=== PATIENT | female | born 1945 | race American Indian/Alaskan Native ===

== ENCOUNTER 2016-09-18 11:24 | Outpatient (CLI) | payer MEDICARE ==
--- NOTE | 2016-09-19 08:16 | Vascular Lab Report ---
LEFT LOWER EXTREMITY ARTERIAL DUPLEX: REASON FOR EXAM: Peripheral arterial disease. COMMENTS ON THE LEFT: Triphasic waveforms are seen proximally. Monophasic waveforms are seen distally. Significant decrease in velocity noted distally in both posterior and anterior tibial artery.. No focal significant plaque is identified. Findings are not consistent with normal perfusion. Findings are inconclusive with the ability to heal distal wounds. IMPRESSION: LEFT:No obvious arterial occlusive disease. However significant decrease in velocity and monophasic waveflows could represent unrecognized stenosis or occlusion. Clinical correlation recommended and if clinical situation warrants a contrast study may be required such as CTA or catheter based angiography..
== END 2016-09-18 11:25 | disposition home or self-care (01) ==
LOC: VAS 11:24
PROVIDERS: ATTEND Specialist
DX: M17.12 Unilateral primary osteoarthritis, left knee (principal); M23.92 Unspecified internal derangement of left knee; M25.562 Pain in left knee

== ENCOUNTER 2017-03-16 12:38 | Inpatient (IN) | payer MEDICARE ==
[2017-03-16 13:08] LABS: Basophils % (Auto) 1.2 % (0.0-1.8); Eosinophils % (Auto) 1.9 % (0.0-4.3); Hematocrit 38.8 % (30.3-42.9); Mean Corpuscular HGB Conc 34 % (30-34); Mean Corpuscular Hemoglobin 31 pg (28-32); Mean Corpuscular Volume 93 fl (79-97); Platelet Count 207 K/mm3 (140-440); Red Blood Count 4.17 M/mm3 (3.65-5.03); Red Cell Distribution Width 14.1 % (13.2-15.2); White Blood Count 5.6 K/mm3 (4.5-11.0)
[2017-03-16 13:19] LABS: Anion Gap 19 mmol/L; BUN/Creatinine Ratio 21.25; Blood Urea Nitrogen 17 mg/dL (7-17); Calcium 9.5 mg/dL (8.4-10.2); Carbon Dioxide 26 mmol/L (22-30); Chloride 100.7 mmol/L (98-107); Glucose 96 mg/dL (65-100); Potassium 3.3 mmol/L (3.6-5.0); Sodium 142 mmol/L (137-145)
[2017-03-16] MEDS ORDERED: BABY ASPIRIN PO ONE (14:35)
[2017-03-16] MEDS ORDERED: SUBLIMAZE IV ONE (14:36)
[2017-03-16] MEDS ORDERED: NORCO 5/325 PO ONE (15:02)
--- NOTE | 2017-03-16 16:12 | Emergency Department Report ---
ED Chest Pain HPI - General Chief Complaint: Chest Pain Stated Complaint: CHEST PAIN/LEFT ARM TINGLING Time Seen by Provider: 03/16/17 14:13 Source: patient Mode of arrival: Ambulatory Limitations: No Limitations - History of Present Illness Initial Comments: Patient is a 71-year-old female past medical history of CABG. Presents with chest pain that has been going on since yesterday. She says the pain is sharp, 6 out of 10. It is an electrical type pain it radiates from her left chest to her left arm. The pain is intermittent nothing makes the pain better or worse. Patient has a history of atrial fibrillation. Patient has never been diagnosed with a heart attack before. She also takes daily aspirin. Severity scale (0 -10): 10 - Related Data Home Medications Medication Instructions Recorded Confirmed Last Taken Aspirin [Aspirin BABY CHEW TAB] 81 mg PO DAILY 05/12/15 03/16/17 03/15/17 Metoprolol [Lopressor TAB] 50 mg PO DAILY 05/12/15 03/16/17 03/16/17 [place]-3 Fatty Acids/Fish Oil [Fish 1 tab PO DAILY 05/12/15 03/16/17 03/16/17 Oil] amLODIPine [Norvasc] 10 mg PO DAILY 05/12/15 03/16/17 03/16/17 Acetaminophen/Codeine [Tylenol 1 each PO Q6H PRN 03/16/17 03/16/17 03/14/17 /Codeine # 3 tab] Cod Liver Oil [Cod Liver Oil] 1 each PO QDAY 03/16/17 03/16/17 03/16/17 Olmesartan/Hydrochlorothiazide 1 each PO QDAY 03/16/17 03/16/17 03/16/17 [Benicar HCT 40-12.5 mg] Pravastatin Sodium [Pravastatin] 20 mg PO QHS 03/16/17 03/16/17 03/16/17 Allergies Allergy/AdvReac Type Severity Reaction Status Date / Time morphine Allergy Itching Verified 05/12/15 14:21 Sulfa (Sulfonamide Allergy Shortness Verified 05/12/15 14:21 Antibiotics) of Breath Heart Score - HEART Score History: Moderately suspicious EKG: Normal Age: > 65 Risk factors: > 3 risk factors or hx of atherosclerotic disease Troponin: < normal limit HEART Score: 5 - Critical Actions Critical Actions: 4-6 pts:12-16.6% risk of adverse cardiac event. Should be admitted ED Review of Systems ROS: Stated complaint: CHEST PAIN/LEFT ARM TINGLING Other details as noted in HPI Constitutional: denies: chills, fever Eyes: denies: eye pain, eye discharge, vision change ENT: denies: ear pain, throat pain Respiratory: denies: cough, shortness of breath, wheezing Cardiovascular: chest pain, palpitations Endocrine: no symptoms reported Gastrointestinal: denies: abdominal pain, nausea, diarrhea Genitourinary: denies: urgency, dysuria, discharge Musculoskeletal: denies: back pain, joint swelling, arthralgia Skin: denies: rash, lesions Neurological: denies: headache, weakness, paresthesias Psychiatric: denies: anxiety, depression Hematological/Lymphatic: denies: easy bleeding, easy bruising ED Past Medical Hx - Past Medical History Previous Medical History?: Yes Hx Hypertension: Yes Hx Arthritis: Yes - Surgical History Hx Open Heart Surgery: Yes (5 bypass) - Social History Smoking Status: Never Smoker Substance Use Type: None - Medications Home Medications: Home Medications Medication Instructions Recorded Confirmed Last Taken Type Aspirin [Aspirin BABY CHEW TAB] 81 mg PO DAILY 05/12/15 03/16/17 03/15/17 History Metoprolol [Lopressor TAB] 50 mg PO DAILY 05/12/15 03/16/17 03/16/17 History [place]-3 Fatty Acids/Fish Oil [Fish 1 tab PO DAILY 05/12/15 03/16/17 03/16/17 History Oil] amLODIPine [Norvasc] 10 mg PO DAILY 05/12/15 03/16/17 03/16/17 History Acetaminophen/Codeine [Tylenol 1 each PO Q6H PRN 03/16/17 03/16/17 03/14/17 History /Codeine # 3 tab] Cod Liver Oil [Cod Liver Oil] 1 each PO QDAY 03/16/17 03/16/17 03/16/17 History Olmesartan/Hydrochlorothiazide 1 each PO QDAY 03/16/17 03/16/17 03/16/17 History [Benicar HCT 40-12.5 mg] Pravastatin Sodium [Pravastatin] 20 mg PO QHS 03/16/17 03/16/17 03/16/17 History ED Physical Exam - General Limitations: No Limitations General appearance: alert - Head Head exam: Present: atraumatic, normocephalic - Eye Eye exam: Present: normal appearance, PERRL, EOMI - ENT ENT exam: Present: normal exam - Neck Neck exam: Present: normal inspection - Respiratory Respiratory exam: Present: normal lung sounds bilaterally, respiratory distress - Cardiovascular Cardiovascular Exam: Present: normal rhythm, bradycardia, other (chest wall tenderness) - GI/Abdominal GI/Abdominal exam: Present: soft - Extremities Exam Extremities exam: Present: normal inspection - Back Exam Back exam: Present: normal inspection - Neurological Exam Neurological exam: Present: alert, oriented X3 - Psychiatric Psychiatric exam: Present: normal affect, normal mood - Skin Skin exam: Present: warm ED Course Vital Signs 03/16/17 03/16/17 03/16/17 12:49 14:06 14:07 Temperature 98.6 F Pulse Rate 54 L 52 L Respiratory 16 16 Rate Blood Pressure 124/64 Blood Pressure 107/44 [Left] O2 Sat by Pulse 99 100 Oximetry 03/16/17 03/16/17 03/16/17 15:17 16:17 17:15 Temperature Pulse Rate 55 L Respiratory 16 16 16 Rate Blood Pressure Blood Pressure 104/55 [Left] O2 Sat by Pulse 99 Oximetry - Reevaluation(s) Reevaluation #1: 03/16/17 16:16 Reevaluated patient patient's pain is improved. Second troponin on drawed. SINTIA score - Sintia Score Age > 65: (1) Yes Aspirin use within the Past 7 Days: (0) No 3 or more CAD Risk Factors: (1) Yes 2 or more Angina events in past 24 hrs: (1) Yes Known CAD with more than 50% Stenosis: (1) Yes Elevated Cardiac Markers: (0) No ST Deviation Greater than 0.5mm: (0) No SINTIA Score: 4 ED Medical Decision Making - Lab Data Result diagrams: 03/16/17 12:53 03/16/17 12:53 Laboratory Tests 03/16/17 03/16/17 12:53 12:53 WBC 5.6 RBC 4.17 Hgb 13.0 Hct 38.8 MCV 93 MCH 31 MCHC 34 RDW 14.1 Plt Count 207 Lymph % (Auto) 42.0 H [place] % (Auto) 6.0 Eos % (Auto) 1.9 Baso % (Auto) 1.2 Lymph # 2.3 [place] # 0.3 Eos # 0.1 Baso # 0.1 Seg Neutrophils % 48.9 Seg Neutrophils # 2.7 Sodium 142 Potassium 3.3 L Chloride 100.7 Carbon Dioxide 26 Anion Gap 19 BUN 17 Creatinine 0.8 Estimated GFR > 60 BUN/Creatinine Ratio 21.25 Glucose 96 Calcium 9.5 Troponin T < 0.010 - EKG Data -: EKG Interpreted by Me Rate: bradycardia - EKG Data When compared to previous EKG there are: previous EKG unavailable 03/16/17 16:20 EKG has bradycardia normal rhythm, no st segment elevation, no t wave inversion , no increased intervals. QTC is 413 - Radiology Data Radiology results: report reviewed, image reviewed - Medical Decision Making Chief medical diagnosis: N STEMI Differential medical diagnosis: Acute coronary syndrome, unstable angina, pericarditis, GERD, anxiety We'll give patient aspirin, EKG, cxr, analgesic medication and will admit to due patine having significant cardiac risk factors. Critical care attestation.: If time is entered above; I have spent that time in minutes in the direct care of this critically ill patient, excluding procedure time. ED Disposition Clinical Impression: Chest pain Disposition: DC-[id number] OP ADMIT IP TO THIS HOSP Is pt being admited?: Yes Does the pt Need Aspirin: Yes (patient given 3 baby aspirin) Condition: Stable Time of Disposition: 18:00
--- NOTE | 2017-03-16 17:33 | Admit Criteria Form ---
Admission Criteria Documentation: CHEST PAIN Clinical Indications for Admission to Inpatient Care (Place 'X' for any and all applicable criteria): Admission is indicated for chest pain and ANY ONE of the following(1)(2)(3)(4)(5 ): [ ]I. Angina with acute coronary syndrome (Also use Myocardial Infarction or Angina guideline) [ ]II. Hemodynamic instability [X]III. Angina needing acute intervention as indicated by ALL of the following( 11)(12): [ ]a) Unstable angina is present as indicated by angina that is ANY ONE of the following: [ ]i) New onset [ ]ii) Nocturnal [ ]iii) Prolonged at rest [ ]iv) Progressive [X]b) Angina warrants acute intervention as indicated by ANY ONE of the following: [ ]i) Recurrent angina (e.g, not responding as previously to treatment) [ ]ii) Angina at rest or with low-level activities despite initial medical therapy [ ]iii) New or presumably new ST-segment depression on ECG [ ]iv) Signs or symptoms of heart failure (eg, dyspnea, pulmonary edema) [ ]v) New or worsening mitral regurgitation [ ]vi) Hemodynamic instability [ ]vii) Dangerous arrhythmia (eg, sustained ventricular tachycardia) [ ]viii) History of percutaneous coronary intervention within 6 months [X]ix) History of coronary artery bypass graft surgery [X]x) SINTIA risk score of 2 or greater[A] [ ]xi) History of Diabetes(14) [ ]xii) High-risk cardiac ischemia findings on noninvasive testing (e.g, echocardiogram, treadmill testing, nuclear scan) [ ]xiii) Chronic renal insufficiency (ie, estimated GFR less than 60 mL/min/1.732m) [ ]xiv) Left ventricular ejection fraction less than 40% [ ]IV. Evidence of OR (eg, cardiac biomarkers positive, ST-segment elevation on ECG) also use Myocardial Infarction Criteria Form. [ ]V. Pulmonary edema [ ]. Respiratory distress [ ]VII. Chest pain indicative of serious diagnosis other than coronary artery disease (eg, aortic dissection) [ ]VIII. Contraindications and/or Inappropriate clinical situations for Observational Care in patients with Chest Pain, when ANY ONE of the following is required: [ ]a) Patient with risk factor for pulmonary embolism, acute coronary syndrome and myocardial infarction (18) [ ]b) Patient with Pulmonary embolism require an average LOS of 4.3 days, therefore emergency department observation management is inappropriate 18,23 [ ]c) Painful condition/s in the elderly, have the highest rate of recidivism after emergency department observation management (10.8%) 20,21,22 [ ]d) Elevated cardiac biomarker requires intensive and exhaustive care (19) [ ]IX. General contraindications and/or Inappropriate clinical situations for Observational Care in patients with Chest Pain, when ANY ONE of the following is required: [ ]a) Prediction of prolongation of LOS based on ANY ONE of the following may be considered as a contraindication for observational care 2, 3, 4, 5, 6, 7, 8, 9, 10, 11 [ ]i) Age > 65 yrs. [ ]ii) Patient arriving by ambulance [ ]iii) Patient with high acuity [ ]iv) Patient requiring vital sign monitoring [ ]v) Patient on IV medication [ ]b) Systolic blood pressures 180mmHg 3,12 [ ]c) Patient with altered mental status including delirium and other alteration of consciousness, (3) [ ]d) Patient whose discharge disposition will be to a detention home or rehabilitation home should not be managed in Emergency Department Observation Unit. CMS rule requires 3 days hospital stay before such placement. 3,13 [ ]e) Patient with failure to thrive due to broad array of etiologies 3,16,17 [ ]f) Inability to ambulate 3,14 Extended stay beyond goal length of stay may be needed for (1)(28): [ ]a) Specific condition diagnosed after evaluation (eg, pulmonary embolism, aortic dissection) [ ]b) Unstable angina [ ]c) Continued suspicion of acute coronary syndrome with inability to complete needed cardiac evaluation (eg, patient clinically unable to undergo stress testing) [ ]d) Myocardial infarction (Contents from ANGINA and CHEST PAIN clinical indications for admission to inpatient care have been integrated in this form) The original [employer] content created by [employer] has been revised. The portions of the content which have been revised are identified through the use of italic text or in bold, and [facility] has neither reviewed nor approved the modified material. All other unmodified content is copyright [employer]. Please see references footnoted in the original [facility] edition 2016 Admission Criteria Met: Yes
--- NOTE | 2017-03-16 19:06 | History and Physical Report ---
History of Present Illness Date of examination: 03/16/17 Chief complaint: Chest pain History of present illness: 70-year-old -[place] female with past medical history significant for CAD status post CABG, hypertension, hyperlipidemia presented to the emergency department on left-sided chest pain radiating to the left arm. She complains of having left-sided chest pain, intermittent, 10 out of 10 in intensity, with radiation to the left arm. No associated shortness of breath, diaphoresis, palpitation. No alleviating or relieving factors. REVIEW OF SYSTEMS: GENERAL: no weight change, no fatigue, no fever HEAD: no head ache EYES: no blurry vision, no acute visual loss EARS: no hearing loss, no discharge, no earache NOSE: no stuffiness, no sneezing, no discharge MOUTH, THROAT AND NECK: no bleeding gums, no sore throat, no swollen neck CARDIAC: no palpitations, no dyspnea on exertion, no orthopnea, no PND, no edema ,+chest pain RESPIRATORY: no shortness of breath, no wheeze, no cough, no sputum, no hemoptysis, no asthma GI: no decreased appetite, no nausea, no vomiting, no dysphagia, no diarrhea, no constipation, no abdominal pain URINARY: no change in frequency, no urgency, no polyuria, no hematuria, no incontinence MUSCULOSKELETAL: no muscle weakness, no pain, no joint stiffness NEUROLOGIC: no loss of sensation/numbness, no tingling, no tremors, no weakness/ paralysis HEMATOLOGIC: no anemia, no easy bruising SKIN: no rashes ENDOCRINE: no heat/cold intolerance, no polyuria, no polydipsia, no thyroid problems, no diabetes PSYCHIATRIC: no anxiety, no depression, no suicidal ideations Past History Past Medical History: CAD, hypertension, hyperlipidemia Past Surgical History: Other (cabag, back surgery) Social history: full code. denies: smoking, alcohol abuse, prescription drug abuse, IV drug use Family history: no significant family history Medications and Allergies Allergies Allergy/AdvReac Type Severity Reaction Status Date / Time morphine Allergy Itching Verified 05/12/15 14:21 Sulfa (Sulfonamide Allergy Shortness Verified 05/12/15 14:21 Antibiotics) of Breath Home Medications Medication Instructions Recorded Confirmed Last Taken Type Aspirin [Aspirin BABY CHEW TAB] 81 mg PO DAILY 05/12/15 05/12/15 Unknown History AtorvaSTATin [Lipitor] 10 mg PO DAILY 05/12/15 05/12/15 Unknown History HYDROcodone/APAP 10-325 [[place] 10 mg PO DAILY 05/12/15 05/12/15 Unknown History 10-325 mg TAB] Losartan [Cozaar] 100 mg PO QDAY 05/12/15 05/12/15 Unknown History Metoprolol [Lopressor TAB] 50 mg PO DAILY 05/12/15 05/12/15 Unknown History [place]-3 Fatty Acids/Fish Oil [Fish 1 tab PO DAILY 05/12/15 05/12/15 Unknown History Oil] Potassium Chloride [K-Dur] 10 meq PO QDAY 05/12/15 05/12/15 Unknown History amLODIPine [Norvasc] 10 mg PO DAILY 05/12/15 05/12/15 Unknown History Active Meds: Active Medications Acetaminophen/Hydrocodone Bitart ([place] 10/325) each PO DAILY DENISE Amlodipine Besylate (Norvasc) 10 mg PO DAILY DENISE Aspirin (Ecotrin) 325 mg PO QDAY DENISE Atorvastatin Calcium (Lipitor) 40 mg PO QHS DENISE Heparin Sodium (Porcine) (Heparin) 5,000 unit SUB-Q Q8HR DENISE Isosorbide Dinitrate (Isordil Titradose) 20 mg PO TID DENISE Valsartan (Diovan) 80 mg PO QDAY DENISE Exam - Physical Exam Narrative exam: Not in cardiopulmonary distress. The patient appeared well nourished and normally developed. Vital signs as documented. Head exam is unremarkable. No scleral icterus . Neck is without jugular venous distension, thyromegaly, or carotid bruits. Lungs are clear to auscultation. Cardiac exam reveals regular rate and Rhythm. Abdominal exam reveals normal bowel sounds, no masses, no organomegaly and no aortic enlargement. Extremities are nonedematous and both femoral and pedal pulses are normal. [employer] INSPECT[employer]: Alert and oriented 3. No focal weakness. - Constitutional Vitals: Temp Pulse Resp BP Pulse Ox 98.6 F 55 L 16 104/55 99 03/16/17 12:49 03/16/17 17:15 03/16/17 17:15 03/16/17 17:15 03/16/17 17:15 Results - Labs CBC & Chem 7: 03/16/17 12:53 03/16/17 12:53 Labs: Laboratory Last Values WBC 5.6 K/mm3 (4.5-11.0) 03/16/17 12:53 RBC 4.17 M/mm3 (3.65-5.03) 03/16/17 12:53 Hgb 13.0 gm/dl (10.1-14.3) 03/16/17 12:53 Hct 38.8 % (30.3-42.9) 03/16/17 12:53 MCV 93 fl (79-97) 03/16/17 12:53 MCH 31 pg (28-32) 03/16/17 12:53 MCHC 34 % (30-34) 03/16/17 12:53 RDW 14.1 % (13.2-15.2) 03/16/17 12:53 Plt Count 207 K/mm3 (140-440) 03/16/17 12:53 Lymph % (Auto) 42.0 % (13.4-35.0) H 03/16/17 12:53 [place] % (Auto) 6.0 % (0.0-7.3) 03/16/17 12:53 Eos % (Auto) 1.9 % (0.0-4.3) 03/16/17 12:53 Baso % (Auto) 1.2 % (0.0-1.8) 03/16/17 12:53 Lymph # 2.3 K/mm3 (1.2-5.4) 03/16/17 12:53 [place] # 0.3 K/mm3 (0.0-0.8) 03/16/17 12:53 Eos # 0.1 K/mm3 (0.0-0.4) 03/16/17 12:53 Baso # 0.1 K/mm3 (0.0-0.1) 03/16/17 12:53 Seg Neutrophils % 48.9 % (40.0-70.0) 03/16/17 12:53 Seg Neutrophils # 2.7 K/mm3 (1.8-7.7) 03/16/17 12:53 Sodium 142 mmol/L (137-145) 03/16/17 12:53 Potassium 3.3 mmol/L (3.6-5.0) L 03/16/17 12:53 Chloride 100.7 mmol/L (98-107) 03/16/17 12:53 Carbon Dioxide 26 mmol/L (22-30) 03/16/17 12:53 Anion Gap 19 mmol/L 03/16/17 12:53 BUN 17 mg/dL (7-17) 03/16/17 12:53 Creatinine 0.8 mg/dL (0.7-1.2) 03/16/17 12:53 Estimated GFR > 60 ml/min 03/16/17 12:53 BUN/Creatinine Ratio 21.25 % 03/16/17 12:53 Glucose 96 mg/dL (65-100) 03/16/17 12:53 Calcium 9.5 mg/dL (8.4-10.2) 03/16/17 12:53 Troponin T < 0.010 ng/mL (0.00-0.029) 03/16/17 15:51 - Imaging and Cardiology EKG: image reviewed (sinus bradycardia) Assessment and Plan Assessment and plan: Chest pain CAD status post CABG Hypertension Hyperlipidemia - First set of cardiac enzymes are negative, we will repeat more sets of cardiac enzymes - Stress test tomorrow - [place] consulted - Continue her home medication for her blood pressure - Atorvastatin for hyperlipidemia DVT prophylaxis - Heparin Disposition -Admit to telemetry floor Advance Directives: Yes VTE prophylaxis?: Chemical Plan of care discussed with patient/family: Yes
[2017-03-16] MEDS ORDERED: K-DUR PO ONE ×2 (20:00→23:00)
[2017-03-16] MEDS: ISORDIL TITRADOSE PO SCH (23:56)
[2017-03-16] MEDS: HEPARIN SUB-Q SCH (23:57)
[2017-03-16] MEDS: NORCO 10/325 PO PRN (23:57)
[2017-03-17 02:53] LABS: Basophils % (Auto) 0.8 % (0.0-1.8); Eosinophils % (Auto) 1.4 % (0.0-4.3); Hematocrit 37.8 % (30.3-42.9); Hemoglobin 12.8 gm/dl (10.1-14.3); Mean Corpuscular HGB Conc 34 % (30-34); Mean Corpuscular Hemoglobin 31 pg (28-32); Mean Corpuscular Volume 93 fl (79-97); Platelet Count 178 K/mm3 (140-440); Red Blood Count 4.09 M/mm3 (3.65-5.03); White Blood Count 6.1 K/mm3 (4.5-11.0)
[2017-03-17 03:06] LABS: Anion Gap 20 mmol/L; BUN/Creatinine Ratio 21.11; Blood Urea Nitrogen 19 mg/dL (7-17); Calcium 9.4 mg/dL (8.4-10.2); Carbon Dioxide 27 mmol/L (22-30); Chloride 97.9 mmol/L (98-107); Glucose 126 mg/dL (65-100); Potassium 3.8 mmol/L (3.6-5.0); Sodium 141 mmol/L (137-145)
[2017-03-17 04:03] LABS: Cholesterol 176 mg/dL (50-199); HDL Cholesterol 84 mg/dL (40-59); LDL Cholesterol,Direct 78 mg/dL (50-130); Triglycerides 72 mg/dL (2-149)
[2017-03-17] MEDS: HEPARIN SUB-Q SCH ×2 (06:41→14:32)
[2017-03-17] MEDS ORDERED: LEXISCAN IV ONE ×2 (08:20→08:28)
[2017-03-17] MEDS: ISORDIL TITRADOSE PO SCH ×2 (09:15→14:33)
[2017-03-17] MEDS ORDERED: ECOTRIN PO SCH (10:00)
[2017-03-17] MEDS ORDERED: NORCO 10/325 PO SCH (10:00)
[2017-03-17] MEDS ORDERED: NORVASC PO SCH (10:00)
[2017-03-17] MEDS ORDERED: DIOVAN PO SCH (10:00)
--- NOTE | 2017-03-17 10:51 | XRay Report ---
CHEST XRAY, 2 VIEWS: History: Chest pain. Findings: There is mild cardiomegaly. Pulmonary vessels are within normal limits. The lungs are clear and fully expanded. No infiltrate, pleural effusion or pneumothorax. Normal thoracic cage. No significant change since 05/12/15. IMPRESSION: Cardiomegaly.
[2017-03-17] MEDS: NORCO 10/325 PO PRN (11:55)
--- NOTE | 2017-03-17 12:03 | Consultation ---
History of Present Illness Consult date: 03/17/17 Consult reason: chest pain History of present illness: This patient is a 71-year-old woman with a history of coronary artery disease, who gives a history of prior coronary artery bypass. The age of her bypass is uncertain, patient is a poor historian. She regularly follows up with Dr. Araujo. She presents to the hospital at this time with chest pain, left-sided, nonexertional, stabbing in character. Serial ECGs done in the hospital revealed normal sinus rhythm, normal ECG with no ischemic changes. Laboratory exam reveals normal cardiac enzymes. Today, she underwent a Persantine thallium stress test, the results of which are pending. Past History Past Medical History: CAD, hypertension, hyperlipidemia Past Surgical History: Other (cabag, back surgery) Social history: full code. denies: smoking, alcohol abuse, prescription drug abuse, IV drug use Family history: no significant family history Medications and Allergies Allergies Allergy/AdvReac Type Severity Reaction Status Date / Time morphine Allergy Itching Verified 05/12/15 14:21 Sulfa (Sulfonamide Allergy Shortness Verified 05/12/15 14:21 Antibiotics) of Breath Home Medications Medication Instructions Recorded Confirmed Last Taken Type Aspirin [Aspirin BABY CHEW TAB] 81 mg PO DAILY 05/12/15 03/16/17 03/15/17 History Metoprolol [Lopressor TAB] 50 mg PO DAILY 05/12/15 03/16/17 03/16/17 History [place]-3 Fatty Acids/Fish Oil [Fish 1 tab PO DAILY 05/12/15 03/16/17 03/16/17 History Oil] amLODIPine [Norvasc] 10 mg PO DAILY 05/12/15 03/16/17 03/16/17 History Acetaminophen/Codeine [Tylenol 1 each PO Q6H PRN 03/16/17 03/16/17 03/14/17 History /Codeine # 3 tab] Cod Liver Oil [Cod Liver Oil] 1 each PO QDAY 03/16/17 03/16/17 03/16/17 History Olmesartan/Hydrochlorothiazide 1 each PO QDAY 03/16/17 03/16/17 03/16/17 History [Benicar HCT 40-12.5 mg] Pravastatin Sodium [Pravastatin] 20 mg PO QHS 03/16/17 03/16/17 03/16/17 History Active Meds: Active Medications Acetaminophen/Hydrocodone Bitart ([place] 10/325) 1 each PO Q6H PRN PRN Reason: Pain, Moderate (4-6) Last Admin: 03/17/17 11:55 Dose: 1 each Amlodipine Besylate (Norvasc) 10 mg PO DAILY [facility] Last Admin: 03/17/17 11:41 Dose: 10 mg Aspirin (Ecotrin) 325 mg PO QDAY [facility] Last Admin: 03/17/17 11:42 Dose: 325 mg Atorvastatin Calcium (Lipitor) 40 mg PO QHS [facility] Last Admin: 03/16/17 23:57 Dose: 40 mg Heparin Sodium (Porcine) (Heparin) 5,000 unit SUB-Q Q8HR [facility] Last Admin: 03/17/17 06:41 Dose: Not Given Isosorbide Dinitrate (Isordil Titradose) 20 mg PO TID [facility] Last Admin: 03/17/17 09:15 Dose: Not Given Valsartan (Diovan) 80 mg PO QDAY [facility] Last Admin: 03/17/17 11:42 Dose: 80 mg Review of Systems Cardiovascular: chest pain, no orthopnea, no palpitations, no rapid/irregular heart beat, no edema, no syncope, no lightheadedness, no shortness of breath Physical Examination Vital Signs Temp Pulse BP 98.6 F 54 L 124/64 03/16/17 12:49 03/16/17 12:49 03/16/17 12:49 General appearance: no acute distress HEENT: Positive: PERRL Neck: Positive: neck supple Cardiac: Positive: Reg Rate and Rhythm Lungs: Positive: Decreased Breath Sounds Neuro: Positive: Grossly Intact Abdomen: Positive: Soft Female genitourinary: deferred Skin: Positive: Clear Extremities: Absent: edema Results 03/17/17 02:34 03/17/17 02:34 Lipids 03/17/17 Range/Units 02:34 Triglycerides 72 (2-149) mg/dL Cholesterol 176 (50-199) mg/dL HDL Cholesterol 84 H (40-59) mg/dL Cholesterol/HDL Ratio 2.09 % CBC 03/17/17 Range/Units 02:34 WBC 6.1 (4.5-11.0) K/mm3 RBC 4.09 (3.65-5.03) M/mm3 Hgb 12.8 (10.1-14.3) gm/dl Hct 37.8 (30.3-42.9) % Plt Count 178 (140-440) K/mm3 Lymph # 2.8 (1.2-5.4) K/mm3 [place] # 0.3 (0.0-0.8) K/mm3 Eos # 0.1 (0.0-0.4) K/mm3 Baso # 0.1 (0.0-0.1) K/mm3 Comprehensive Metabolic Panel 03/17/17 Range/Units 02:34 Sodium 141 (137-145) mmol/L Potassium 3.8 (3.6-5.0) mmol/L Chloride 97.9 L (98-107) mmol/L Carbon Dioxide 27 (22-30) mmol/L BUN 19 H (7-17) mg/dL Creatinine 0.9 (0.7-1.2) mg/dL Glucose 126 H (65-100) mg/dL Calcium 9.4 (8.4-10.2) mg/dL EKG interpretations - Telemetry EKG Rhythm: Sinus Rhythm Assessment and Plan - Patient Problems (1) Chest pain Current Visit: Yes Status: Acute Qualifiers: Chest pain type: C Ischemic chest pain type: I Plan to address problem: Chest pain is atypical, cardiac enzymes and negative. Persantin thallium stress test has been completed, results are pending. Further cardiac evaluation and management will depend on clinical course and the results of the thallium stress.
[2017-03-17 13:04] VITALS: BP 117/64
--- NOTE | 2017-03-17 13:21 | Discharge Summary ---
Providers - Providers Date of Admission: 03/16/17 18:57 Date of discharge: 03/17/17 Attending physician: DEQUAN QUINTERO MD 03/17/17 11:47 Consult to Physician [CONS] Urgent Consulting Provider: MEDARDO MENA Reason For Exam: C/P HISTORY CABG Place consult to:: MEDARDO MENA Notified:: YEST Phone number called:: [phone] Primary care physician: GERONTOLOGY AIDE Hospitalization Condition: Stable Hospital course: See D/c summary in reports-dictated Disposition: DC-01 TO HOME OR SELFCARE Core Measure Documentation - Palliative Care Palliative Care/ Comfort Measures: Not Applicable - Core Measures Any of the following diagnoses?: none Exam - Constitutional Vitals: Temp Pulse Resp BP Pulse Ox 98.5 F 63 18 117/64 100 03/17/17 12:54 03/17/17 12:54 03/17/17 12:54 03/17/17 12:54 03/17/17 12:54 General appearance: Present: no acute distress, well-nourished - EENT Eyes: Present: PERRL ENT: hearing intact, clear oral mucosa - Neck Neck: Present: supple, normal ROM - Respiratory Respiratory effort: normal Respiratory: bilateral: CTA - Cardiovascular Heart Sounds: Present: S1 & S2. Absent: rub, click - Extremities Extremities: pulses symmetrical, No edema Peripheral Pulses: within normal limits - Abdominal General gastrointestinal: Present: soft, non-tender, non-distended, normal bowel sounds Female genitourinary: Present: normal - Integumentary Integumentary: Present: clear, warm, dry - Musculoskeletal Musculoskeletal: gait normal, strength equal bilaterally - Psychiatric Psychiatric: appropriate mood/affect, intact judgment & insight - Neurologic Neurologic: CNII-XII intact, moves all extremities Plan Activity: no restrictions Diet: low cholesterol, low salt Follow up with: PRIMARY CARE, [Primary Care Provider] - 3-5 Days Prescriptions: Tramadol HCl/Acetaminophen [Ultracet Tablet] 1 each PO TID #45 tablet
--- NOTE | 2017-03-17 14:45 | Discharge Summary ---
HOSPITAL COURSE: The patient is a 71-year-old -[place] female admitted for left-sided chest pain, intermittent in nature, 10/10 intensity. The patient has history of coronary artery disease, status post CABG x3 in 2008, but the patient is not sure and hypertension and hyperlipidemia, comes in for left-sided intermittent chest pain. The patient denies smoking, alcohol use or substance abuse. The patient also has severe low back pain with radiation to the right lower extremity. The patient had back surgery in the past. The patient had serial cardiac enzymes and CK and troponins were negative. HDL cholesterol is 84 which is good. BUN and creatinine 19 and 0.9, potassium of 3.3 which is improved to 3.8, otherwise fine. EKG shows normal sinus rhythm with sinus bradycardia, no acute ST-T wave changes. The patient has a past history of cardiac enzymes which are negative. The patient also had a scan on the morning of 03/17/2017 and was negative. Cardiology was consulted. Also, the patient can go home because of negative stress test. The patient is being discharged with home medication. Her vitals are stable at the time of discharge. The patient has blood pressure of 117/64, temperature is 98.5, pulse is 53, respirations are 18. DISCHARGE DIAGNOSES: 1. Acute coronary syndrome, chest pain secondary to some reasonable obstruction ruled out. 2. Coronary artery disease. Continue aspirin and pravastatin 20 mg p.o. at bedtime. 3. Hypertension. Continue metoprolol 50 mg once a day and Benicar 40/12.5 once a day, amlodipine 10 mg once a day. 4. Hyperlipidemia. Continue pravastatin 10 mg p.o. at bedtime. 5. Low back pain. The patient is being initiated on Ultracet 37.5/325 b.i.d. p.r.n. The patient was advised walking, but the patient says that walking is very painful. The patient was given alternative of biking. FINAL DISCHARGE DIAGNOSES: 1. Acute coronary syndrome. 2. Hypertension. 3. Hyperlipidemia. 4. Low back pain with radiation to the right lower extremity. Follow up with primary care, Dr. Bee Lopez, in 3-7 days. The patient is advised to follow up with Dr. Bee Lopez. JOB# [id number] VERONICA/YANG
--- NOTE | 2017-03-18 01:57 | Treadmill Report ---
THALLIUM STRESS TEST REPORT LEFT VENTRICLE: Left ventricular chamber size is within normal. Perfusion study demonstrates normal apical thinning, otherwise homogeneous uptake of the tracer in all segments. No significant perfusion defects identified. Gated analysis demonstrates normal left ventricular systolic function, ejection fraction 58%. CONCLUSION: Normal myocardial perfusion study. JOB# [id number] CA/NTS
== END 2017-03-17 15:43 | disposition home or self-care (01) | DRG 311 ==
LOC: ED 12:38 → 4A 18:57
PROVIDERS: ADMIT Internal Medicine; ATTEND Internal Medicine
DX: I24.9 Acute ischemic heart disease, unspecified (principal); M19.90 Unspecified osteoarthritis, unspecified site; I10 Essential (primary) hypertension; E78.5 Hyperlipidemia, unspecified; I25.10 Atherosclerotic heart disease of native coronary artery without angina pectoris; Z95.1 Presence of aortocoronary bypass graft; Z88.2 Allergy status to sulfonamides; Z88.6 Allergy status to analgesic agent
CPT/HCPCS: 36415; 71020; 78452; 80048; 80061; 84484; 85025; 93005; 93010; 93017; A9270-GY; A9502; J1644; J2785